=== PATIENT | female | born 1950 ===

== ENCOUNTER 2021-04-12 10:15 | Inpatient (IN) | payer OTHER ==
[~2021-04-12] VITALS: Ht 170.2 cm; Wt 117.9 kg
[2021-04-12] MEDS ORDERED: ATORVASTATIN CA10 MG PO (12:41)
[2021-04-12] MEDS ORDERED: COZAAR100 MG PO (12:41)
[2021-04-12] MEDS ORDERED: HORIZANT300 MG PO (12:42)
[2021-04-12] MEDS ORDERED: LOSART PO (12:42)
[2021-04-12] MEDS ORDERED: CARVEDILOL25 M1 PO (12:42)
[2021-04-17] MEDS ORDERED: AMOX-CLAV 875-1 EACH PO (13:46)
[2021-04-17] MEDS ORDERED: MEDROLPACK PO (13:46)
[2021-04-17] MEDS ORDERED: DIAZEPAM5 MG PO (13:46)
[2021-04-17] MEDS ORDERED: NEURONTIN800 MG PO (13:46)
[2021-04-17] MEDS ORDERED: ACETAMINOPHEN-1 EAC2 PO (13:46)
[2021-04-17] MEDS ORDERED: COLACE100 MG PO (13:46)
== END 2021-04-18 17:57 | disposition home or self-care (01) | DRG 455 ==
LOC: O/R 04-17 06:35 → SURH 04-17 10:15 → PED 04-17 18:59
PROVIDERS: ADMIT Orthopaedic Surgery Orthopaedic Surgery of the Spine; ATTEND Orthopaedic Surgery Orthopaedic Surgery of the Spine
PROC: 0SG10J1 Fusion of 2 or more Lumbar Vertebral Joints with Synthetic Substitute, Posterior Approach, Posterior Column, Open Approach (ICD-10-PCS; 2021-04-17)
PROC: 0QB30ZZ Excision of Left Pelvic Bone, Open Approach (ICD-10-PCS; 2021-04-17)
PROC: 07DR3ZZ Extraction of Iliac Bone Marrow, Percutaneous Approach (ICD-10-PCS; 2021-04-17)
PROC: XRGC0R7 Fusion of 2 or more Lumbar Vertebral Joints using Custom-Made Anatomically Designed Interbody Fusion Device, Open Approach, New Technology Group 7 (ICD-10-PCS; principal; 2021-04-17 14:00)
DX: M43.16 Spondylolisthesis, lumbar region (principal); M48.062 Spinal stenosis, lumbar region with neurogenic claudication; I10 Essential (primary) hypertension; E66.01 Morbid (severe) obesity due to excess calories